=== PATIENT | female | born 1945 | race Two or more races ===

== ENCOUNTER 2021-12-21 11:05 | Outpatient (CLI) | payer OTHER | END 2021-12-21 11:09 | disposition home or self-care (01) | LOC: LAB 11:05 | PROVIDERS: ATTEND Radiology Diagnostic Radiology | DX: C54.1 Malignant neoplasm of endometrium (principal) ==

== ENCOUNTER 2021-12-31 07:20 | Outpatient (CLI) | payer OTHER | END 2021-12-31 07:23 | disposition home or self-care (01) | LOC: NUCLEAR 07:20 | PROVIDERS: ATTEND Obstetrics & Gynecology Gynecologic Oncology | DX: C54.1 Malignant neoplasm of endometrium (principal) | CPT/HCPCS: 78816; A9552 ==

== ENCOUNTER 2022-01-05 09:17 | Outpatient (CLI) | payer OTHER | END 2022-01-05 09:26 | disposition home or self-care (01) | LOC: MRI 09:17 | PROVIDERS: ATTEND Obstetrics & Gynecology Gynecologic Oncology | DX: C54.1 Malignant neoplasm of endometrium (principal) | CPT/HCPCS: 72197; Q9965 ==

== ENCOUNTER 2022-02-07 07:36 | Outpatient (CLI) | payer OTHER | END 2022-02-07 07:37 | disposition home or self-care (01) | LOC: NUCLEAR 07:36 | PROVIDERS: ATTEND Internal Medicine | DX: I25.9 Chronic ischemic heart disease, unspecified (principal) | CPT/HCPCS: 78452; 93017; A9500; J1250 ==

== ENCOUNTER 2022-10-19 07:33 | Outpatient (CLI) | payer OTHER | END 2022-10-19 07:40 | disposition home or self-care (01) | LOC: NUCLEAR 07:33 | PROVIDERS: ATTEND Internal Medicine | DX: C54.1 Malignant neoplasm of endometrium (principal) | CPT/HCPCS: 78815; A9552 ==